=== PATIENT | male | born 1985 | race Two or more races ===

== ENCOUNTER 2019-04-24 06:37 | Inpatient (IN) | payer OTHER ==
[~2019-04-24] VITALS: Ht 185.4 cm; Wt 56.7 kg
[2019-04-24] MEDS ORDERED: LORAZEPAM INJ 2 MG/ML VIAL ONE ×2 (06:56→08:22)
[2019-04-24] MEDS ORDERED: ONDANSETRON HCL/PF 4 MG/2 ML VIAL ONE ×2 (06:56→08:22)
[2019-04-24] MEDS ORDERED: IV NS 0.9% 1,000 ML BAG IV ONE ×2 (07:00→08:30)
[2019-04-24] MEDS ORDERED: LORAZEPAM INJ 2 MG/ML VIAL IVP ONE (07:00)
[2019-04-24] MEDS ORDERED: ONDANSETRON HCL/PF 4 MG/2 ML VIAL IVP ONE (07:00)
--- NOTE | 2019-04-24 07:07 | NUR ---
JESSE FROM HOME. TO ER BED 12. AAOX4, PT CRYING AND SCREAMING. C/O HEROIN WITHDRAWAL. PT REPORT SMOKING HEROIN. LAST USE WAS 3 DAYS AGO. PT COMPLAIN OF GEN BODY PAIN. PT VOMITTED X2 EPISODE OF YELLOW VOMIT. PT HAS BEEN SMOKING HEROIN FOR THE PAST 8 YEAR. MD AT BEDSIDE FOR EVAL. ORDERS RECEIVED, NOTED AND CARRIED OUT. IV LINE OBATINED ON R AC 18G. BLOOD DRAWN BY LIMITED RADIOLOGY TECHNICIAN.
[2019-04-24 07:20] LABS: BASOPHILS # (AUTO) 0.2 /CMM (0.0-0.2); BASOPHILS % (AUTO) 1.7 % (0.0-2.0); EOSINOPHILS % (AUTO) 1.9 % (0.0-6.0); HEMATOCRIT 47 % (39-51); HEMOGLOBIN 15.7 g/dL (13.5-17.5); LYMPHOCYTES # (AUTO) 1.7 /CMM (0.8-4.8); LYMPHOCYTES % (AUTO) 11.6 % (20.0-44.0); MEAN CORPUSCULAR HGB CONC 34 g/dl (31.0-36.0); MEAN CORPUSCULAR VOLUME 86 fL (80-96); MONOCYTES % (AUTO) 6.9 % (2.0-12.0); NEUTROPHILS # (AUTO) 11.1 /CMM (1.8-8.9); NEUTROPHILS % (AUTO) 77.9 % (43.0-81.0); PLATELET COUNT (AUTO) 280 /CMM (150-450); RED BLOOD CELL COUNT(AUTO) 5.43 MIL/uL (4.5-6.0); WHITE BLOOD COUNT (AUTO) 14.3 K/uL (4.3-11.0)
--- NOTE | 2019-04-24 07:23 | NUR ---
PT ENDORSED TO YEIMI MCLAIN FOR KASSY
--- NOTE | 2019-04-24 07:24 | NUR ---
REPORT RECEIVED FROM JOHN JALLOH FOR KASSY.
[2019-04-24 07:25] LABS: CALCIUM, SERUM 10.5 mg/dL (8.5-10.1); CARBON DIOXIDE 23 mmol/L (21-32); CHLORIDE 101 mmol/L (98-107); CREATININE 1.2 mg/dL (0.6-1.3); GLUCOSE 132 mg/dL (74-106); SODIUM SERUM 138 mmol/L (136-145); UREA NITROGEN, BLOOD 14 mg/dL (7-18)
[2019-04-24 07:31] LABS: ACETAMINOPHEN < 2 ug/ml (10-30); ALANINE AMINOTRANSFERASE 21 U/L (12-78); ALBUMIN 4.6 g/dL (3.4-5.0); ALCOHOL, BLOOD < 3 mg/dL (0-0); ALKALINE PHOSPHATASE 139 U/L (46-116); ASPARTATE AMINOTRANSFERASE 37 U/L (15-37); BILIRUBIN,DIRECT 0.1 mg/dL (0.0-0.2); BILIRUBIN,TOTAL 0.7 mg/dL (0.2-1.0); SALICYLATE 1.9 mg/dL (2.8-20.0); TOTAL PROTEIN, SERUM 8.4 g/dL (6.4-8.2)
[2019-04-24] MEDS ORDERED: METOCLOPRAMIDE HCL 10 MG/2 ML VIAL ONE (08:00)
[2019-04-24] MEDS ORDERED: METOCLOPRAMIDE HCL 10 MG/2 ML VIAL IV ONE (08:00)
--- NOTE | 2019-04-24 08:04 | NUR ---
PATIENT IN BED AWAKE, NOTED W VOMITING, MADE MD AWARE.
[2019-04-24] MEDS ORDERED: POTASSIUM CL. PREMIX PERIPHER. 200 ML ONE (08:23)
[2019-04-24] MEDS ORDERED: LORAZEPAM INJ 2 MG/ML VIAL IV ONE (08:30)
[2019-04-24] MEDS ORDERED: ONDANSETRON HCL/PF 4 MG/2 ML VIAL IV ONE (08:30)
[2019-04-24] MEDS: POTASSIUM CL. PREMIX PERIPHER. 50 ML IV SCH ×4 (08:35→12:27)
--- NOTE | 2019-04-24 08:42 | NUR ---
ROOM 110
[2019-04-24 09:00] LABS: EOSINOPHILS % (MANUAL) 1 % (0-4); LYMPHOCYTES % (MANUAL) 12 % (16-48); MONOCYTES % (MANUAL) 7 % (0-11.0); NEUTROPHILS % (MANUAL) 80 (42-76)
[2019-04-24] MEDS ORDERED: NALT50TA PO (09:31)
--- NOTE | 2019-04-24 09:34 | NUR ---
PANEL ON-CALL PAGED
--- NOTE | 2019-04-24 09:38 | NUR ---
REPORT GIVEN TO YEIMI GERMAN FOR KASSY, WITH ONGOING IV POTASSIUM DRIP.
--- NOTE | 2019-04-24 09:39 | NUR ---
MS1/RN REPORT FROM ER REPORT RECEIVED FROM ER NURSE LILLIAM FOR PT TO BE ADMITTED FOR HYPOKALEMIA AND INTRACTABLE VOMITING UNDER THE CARE OF DR. LA. AWAITING FOR PT'S ARRIVAL.
--- NOTE | 2019-04-24 10:55 | NUR ---
MS1/ALUMINUM BOATS ASSEMBLER TO MS1 - 118#2 PT ARRIVED VIA GURNEY ACCOMPANIED BY HIS WITH ER NURSE LILLIAM. PT WITH ON GOING IV INFUSION OF KCL 3RD OF 4TH BAG ORDERED. PT DROWSY AND RESTLESS, MOVES AROUND IN BED A LOT BUT FOLLOWS COMMAND. VOMITED. AWAITING FOR ADMITTING ORDERS. CL WITHIN REACHED AND SAFETY MAINTAINED. ON GOING MONITORING.
[2019-04-24 11:00] VITALS: BP 90/69
[2019-04-24] MEDS ORDERED: Z GUARD REMEDY 2 OZ OINT TP PRN (11:00)
[2019-04-24] MEDS ORDERED: IBUPROFEN 600 MG TABLET PO PRN (11:00)
[2019-04-24] MEDS ORDERED: ACETAMINOPHEN 325 MG TABLET PO PRN (11:00)
[2019-04-24] MEDS ORDERED: MAG HYDROX/AL HYDROX/SIMETH 30 ML UDC PO PRN (11:00)
[2019-04-24] MEDS ORDERED: MAGNESIUM HYDROXIDE 30 ML UDC PO PRN (11:00)
--- NOTE | 2019-04-24 11:13 | NUR ---
POTASSIUM CHLORIDE 10MEQ/50ML LAST DOSE TO BE GIVEN AT [facility]-SURG UNIT TO COMPLETE FOUR DOSES. ENDORSED TO MAXI JALLOH.
--- NOTE | 2019-04-24 12:27 | NUR ---
MS1/RN LAST BAG POTASSIUM ADMINISTER THE LAST BAG (4 OF 4 BAGS) OF POTASSIUM CHLORIDE 10MEQ ORDERED FROM ER.
[2019-04-24] MEDS: METHOCARBAMOL (750MG) 750 MG TABLET PO SCH ×3 (12:51→21:09)
[2019-04-24] MEDS: ONDANSETRON HCL/PF 4 MG/2 ML VIAL IVP PRN ×2 (13:18→18:02)
[2019-04-24] MEDS: IV D5/0.45 NACL 1,000 ML IV PRN ×2 (14:58→23:14)
[2019-04-24 16:00] VITALS: BP 133/71
--- NOTE | 2019-04-24 18:00 | NUR ---
MS1/RN NO URINE OUTPUT NOTED PT HAVEN'T HAD URINATED, CHECKED WITH BLADDER SCAN RESULT, LESS THAN 44 ML. WITH ON GOING IV INFUSION OF D5 1/2NS @ 125CC/HR. SO FAR SINCE PT WAS ADMITTED HAD ABOUT 7 EPISODES OF VOMITING. ON GOING MONITORING, SITTER AT BEDSIDE.
--- NOTE | 2019-04-24 20:00 | NUR ---
MS1/RN AM SHIFT END NOTES PT STILL KEPT VOMITING PERIODICALLY, WITH ON GOING IV FLUIDS. CONDITION REMAINS THE SAME HE WAS ADMITTED THIS MORNING. ALL NEEDS MET, SITTER AT BEDSIDE. PT ENDORSED TO PM NURSE TO CONTINUE CARE. SAFETY MAINTAINED.
--- NOTE | 2019-04-24 23:39 | NUR ---
MS RN NOTES RECEIVED PATIENT ASLEEP IN BED WITH NO DISTRESS NOTED. CALL LIGHT WITHIN REACH. SITTER AT BEDSIDE. PERIPHERAL LINES INTACT AND PATENT. BED IN LOW LOCK SETTING. ALL BELONGINGS KEPT NEAR BEDSIDE. WILL CONTINUE TO MONITOR
[2019-04-25] VITALS: BP 107/56
[2019-04-25] MEDS: METHOCARBAMOL (750MG) 750 MG TABLET PO SCH ×5 (01:34→17:33)
[2019-04-25] MEDS: ONDANSETRON HCL/PF 4 MG/2 ML VIAL IVP PRN (01:47)
--- NOTE | 2019-04-25 06:46 | NUR ---
MS RN NOTES PATIENT ASLEEP IN BED WITH NO DISTRESS NOTED. CALL LIGHT WITHIN REACH. SITTER AT BEDSIDE. SAFETY PRECAUTIONS IN PLACE AT ALL TIMES. ALL DUE MEDS GIVEN ORDERED WITH NO ASE NOTED. NO FURTHER C/O PAIN OR DISCOMFORT. PATIENT NOTED WITH X3 MINIMUM TO MODERATE AMOUNT YELLOW/BROWN EMESIS. PRN ZOFRAN 4MG GIVEN ORDERED AND EFFECTIVE. ASPIRATION PRECAUTIONS MAINTAINED AT ALL TIMES. PERIPHERAL LINES REMAIN INTACT AND PATENT. BED IN LOW LOCK SETTING. ROOM FREE OF CLUTTER AND BELONGINGS KEPT NEAR BEDSIDE. WILL ENDORSE TO ONCOMING SHIFT.
[2019-04-25] MEDS: PANTOPRAZOLE 40 MG TABLET.DR PO SCH (07:30)
[2019-04-25] MEDS: IV D5/0.45 NACL 1,000 ML IV PRN ×2 (07:35→22:31)
[2019-04-25 07:40] LABS: HEMATOCRIT 49 % (39-51); HEMOGLOBIN 16.4 g/dL (13.5-17.5); LYMPHOCYTES % (AUTO) 4.2 % (20.0-44.0); MEAN CORPUSCULAR HGB CONC 34 g/dl (31.0-36.0); MEAN CORPUSCULAR VOLUME 85 fL (80-96); MONOCYTES # (AUTO) 2.3 /CMM (0.1-1.30); MONOCYTES % (AUTO) 9.4 % (2.0-12.0); NEUTROPHILS # (AUTO) 20.9 /CMM (1.8-8.9); NEUTROPHILS % (AUTO) 86.4 % (43.0-81.0); PLATELET COUNT (AUTO) 272 /CMM (150-450); RED BLOOD CELL COUNT(AUTO) 5.74 MIL/uL (4.5-6.0); WHITE BLOOD COUNT (AUTO) 24.2 K/uL (4.3-11.0)
[2019-04-25 08:00] VITALS: BP 146/62
[2019-04-25 08:42] LABS: ALBUMIN 4.4 g/dL (3.4-5.0); BILIRUBIN,TOTAL 0.7 mg/dL (0.2-1.0); CALCIUM, SERUM 9.9 mg/dL (8.5-10.1); CREATININE 1.7 mg/dL (0.6-1.3); MAGNESIUM 1.9 mg/dL (1.8-2.4); POTASSIUM 2.9 mmol/L (3.5-5.1); TOTAL PROTEIN, SERUM 8.7 g/dL (6.4-8.2)
[2019-04-25 08:51] LABS: THYROID STIMULATING HORMONE 0.485 uIU/mL (0.358-3.74)
[2019-04-25] MEDS: FOLIC ACID 1 MG TABLET PO SCH (09:25)
[2019-04-25] MEDS: THIAMINE HCL 100 MG TABLET PO SCH (09:25)
[2019-04-25] MEDS ORDERED: POTASSIUM PHOSPHATE MM 15 MMOL in IV D5W 250 ML IV SCH (11:30)
[2019-04-25] MEDS ORDERED: PIPERACILLIN /TAZOBACTAM 4.5 G in IV D5W 50 ML IV ONE (12:00)
[2019-04-25] MEDS: POTASSIUM CHLORIDE 20 MEQ TAB.PRT.SR PO SCH ×2 (12:19→14:57)
[2019-04-25] MEDS: POTASSIUM PHOSPHATE MM 7.5 MMOL in IV D5W 100 ML IV SCH ×2 (14:58→15:59)
[2019-04-25] MEDS ORDERED: POTASSIUM CHLORIDE 20 MEQ TAB.PRT.SR PO SCH (15:00)
[2019-04-25 16:00] VITALS: BP 123/82
[2019-04-25 17:47] LABS: APPEARANCE,URINE CLOUDY (CLEAR); BILIRUBIN,URINE 1+ (NEGATIVE); BLOOD, URINE 3+ Ery/uL (NEGATIVE); COLOR,URINE YELLOW (YELLOW); KETONES,URINE TRACE (NEGATIVE); LEUKOCYTE ESTERASE ,URINE NEGATIVE (NEGATIVE); NITRITE, URINE NEGATIVE (NEGATIVE); PH,URINE 5.5 (5.0-8.0); PROTEIN,URINE 3+ mg/dl (NEGATIVE); UGLUCOSE NEGATIVE (NEGATIVE); UROBILINOGEN,URINE 0.2 EU/dL (0.2)
[2019-04-25] MEDS: PIPERACILLIN /TAZOBACTAM 3.375 G in IV D5W 100 ML IV SCH (17:54)
[2019-04-25 17:59] LABS: BACTERIA,URINE Few /HPF (None Seen); MUCUS,URINE Moderate /LPF (None Seen); SQUAMOUS EPITHELIAL CELL,UR Few /HPF (None Seen); URINE AMORPHOUS URATE Many /HPF (None Seen)
[2019-04-25 18:03] LABS: CREATININE, URINE 600.8 MG/DL (30.0-125.0); URINE TOTAL PROTEIN 262.8 mg/dL (0-11.9)
--- NOTE | 2019-04-25 18:22 | NUR ---
patient had multiple brown reddish stool,liquid with offensive odor,dr. hansen notified,with new orders left and carried out.will do stat hemogram for possible gi bleed.
[2019-04-25 18:50] LABS: EOSINOPHIL,URINE None Seen
[2019-04-25 18:58] LABS: HEMATOCRIT 48 % (39-51); MEAN CORPUSCULAR HGB CONC 33 g/dl (31.0-36.0); MEAN CORPUSCULAR VOLUME 86 fL (80-96); PLATELET COUNT (AUTO) 259 /CMM (150-450); RED BLOOD CELL COUNT(AUTO) 5.56 MIL/uL (4.5-6.0)
--- NOTE | 2019-04-25 19:00 | NUR ---
patient had a total of 7 soft stool with reddish color and dr hansen saw with naked eye the consistency and repaged again for the total output. awaiting call back.patient also had one episode of vomiting and with red color vomitus with food particle. patients stated that he had taken red jello. dr vasquez is aware and saw the vomitus too. patient not feeling nauseaus anymore. will obsebe patient. rizo catheter inserted aseptically at 1200 pm and with 375 bladder scan prior to placement fo catheter. with 450 out.
[2019-04-25 19:09] LABS: WHITE BLOOD COUNT (AUTO) 30.5 K/uL (4.3-11.0)
[2019-04-25 20:00] VITALS: BP 143/90
--- NOTE | 2019-04-25 20:30 | NUR ---
RN OPENING NOTES RECEIVED REPORT FROM AM RN. PATIENT A/A/O X3 & ABLE TO VERBALIZE SOME NEEDS & STATE PAIN. BREATHING EVEN & UNLABORED, TOLERATING ROOM AIR. DENIES ANY SOB OR DIFFICULTY BREATHING. RADIAL PULSES PRESENT. RIGHT AC & LEFT AC IV #18 INTACT & PATENT W/ DRESSING CDI & IVF D5 1/2 NS INFUSING WELL 125 ML/HR. GONZALES CATH DRAINING UTE COLORED URINE. X1 BM NOTED W/ LIQUID TEXTURE & DARK RED IN COLOR. STOOL COLLECTED FOR OB STOOL. DENIES ANY PAIN OR DISCOMFORT @ THIS TIME. SAFETY MEASURES IN PLACE W/ SIDE RAILS UP & BED ALARM ON. SITTER @ BEDSIDE. WILL CONTINUE TO MONITOR.
[2019-04-25] MEDS: LORAZEPAM 1 MG TABLET PO PRN (20:49)
[2019-04-25] MEDS: TRAZODONE 50 MG TABLET PO PRN (22:26)
[2019-04-26] MEDS: ONDANSETRON HCL/PF 4 MG/2 ML VIAL IVP PRN ×2 (00:27→21:49)
[2019-04-26] MEDS: PIPERACILLIN /TAZOBACTAM 3.375 G in IV D5W 100 ML IV SCH ×3 (01:35→16:47)
[2019-04-26 04:00] VITALS: BP 120/91
[2019-04-26 06:16] LABS: POTASSIUM 3.1 mmol/L (3.5-5.1)
[2019-04-26 06:17] LABS: BILIRUBIN,TOTAL 0.9 mg/dL (0.2-1.0); CALCIUM, SERUM 8.9 mg/dL (8.5-10.1); CREATININE 1.3 mg/dL (0.6-1.3); PHOSPHORUS 3.7 mg/dL (2.5-4.9)
[2019-04-26 06:18] LABS: ALBUMIN 3.7 g/dL (3.4-5.0)
[2019-04-26 06:19] LABS: MAGNESIUM 1.7 mg/dL (1.8-2.4); TOTAL PROTEIN, SERUM 7.7 g/dL (6.4-8.2)
[2019-04-26 07:12] LABS: OCCULT BLOOD STOOL POSITIVE (NEGATIVE)
[2019-04-26 08:00] VITALS: BP 148/88
[2019-04-26 08:11] LABS: BASOPHILS % (AUTO) 0.2 % (0.0-2.0); EOSINOPHILS % (AUTO) 0.1 % (0.0-6.0); HEMATOCRIT 44 % (39-51); HEMOGLOBIN 14.5 g/dL (13.5-17.5); LYMPHOCYTES # (AUTO) 1.6 /CMM (0.8-4.8); LYMPHOCYTES % (AUTO) 6.5 % (20.0-44.0); MEAN CORPUSCULAR HGB CONC 33 g/dl (31.0-36.0); MEAN CORPUSCULAR VOLUME 85 fL (80-96); MONOCYTES # (AUTO) 2.5 /CMM (0.1-1.30); MONOCYTES % (AUTO) 9.9 % (2.0-12.0); NEUTROPHILS # (AUTO) 20.8 /CMM (1.8-8.9); NEUTROPHILS % (AUTO) 83.3 % (43.0-81.0); PLATELET COUNT (AUTO) 266 /CMM (150-450); RED BLOOD CELL COUNT(AUTO) 5.11 MIL/uL (4.5-6.0)
[2019-04-26] MEDS: PANTOPRAZOLE 40 MG TABLET.DR PO SCH (09:15)
[2019-04-26] MEDS: THIAMINE HCL 100 MG TABLET PO SCH (09:15)
[2019-04-26] MEDS: FOLIC ACID 1 MG TABLET PO SCH (09:16)
[2019-04-26] MEDS ORDERED: POTASSIUM CHLORIDE 20 MEQ TAB.PRT.SR PO SCH (09:30)
[2019-04-26] MEDS: LORAZEPAM 1 MG TABLET PO PRN ×2 (09:31→17:39)
[2019-04-26] MEDS: Magnesium 1GM/D5W 100ML PREMIX 100 ML IV SCH ×2 (09:39→10:31)
--- NOTE | 2019-04-26 09:54 | NUR ---
MS RN NOTE RECEIVED PATIENT IN BED ,ALERT ,ORIENTED, ON 2L NC FOR COMFORT , HR AT THIS TIME RANGE ST [id number] , RT AC AND AT AC HL INTACT INTACT AND FLUSHED WELL , ON IVF ORDERED , BED IN LOWEST AND LOCKED POSITION , PLAN OF CARE DISCUSSED WITH PATIENT CALL LIGHT WITHIN REACH , BREAKFAST GIVEN LIGHT DUE TO VOMITING LAST NIGHT WILL CONT TO MONITOR
--- NOTE | 2019-04-26 09:55 | NUR ---
MS RN NOTE SEEN BY DR TOURE AWARE THAT HR ST 135 AND ATIVAN PO WAD GIVEN ORDERED ALSO AWARE THAT K 3.1STATED CONT CARE MAG 1.7 WILL ADMINISTER MAG REPLACEMENT AND OK RO START REGULAR DIET
[2019-04-26] MEDS ORDERED: IV NS 0.9% 1,000 ML IV ONE (13:30)
--- NOTE | 2019-04-26 15:21 | NUR ---
MS RN NOTES TYLENOL 650 M G GIVEN PER DR ORDER FOR BODY ACHES.
[2019-04-26 16:00] VITALS: BP 138/88
--- NOTE | 2019-04-26 17:04 | NUR ---
MS RN NOTE PT IS TRANSFERRING TO [facility] PER ORDER. TRANSMITTER OPERATOR NOTIFIED. SHER IS AWARE.
[2019-04-26 17:19] LABS: APPEARANCE,URINE CLEAR (CLEAR); BILIRUBIN,URINE NEGATIVE (NEGATIVE); BLOOD, URINE 3+ Ery/uL (NEGATIVE); COLOR,URINE YELLOW (YELLOW); KETONES,URINE NEGATIVE (NEGATIVE); LEUKOCYTE ESTERASE ,URINE NEGATIVE (NEGATIVE); NITRITE, URINE NEGATIVE (NEGATIVE); PROTEIN,URINE 2+ mg/dl (NEGATIVE); UGLUCOSE NEGATIVE (NEGATIVE); UROBILINOGEN,URINE 0.2 EU/dL (0.2)
[2019-04-26 17:27] LABS: RBC,URINE 21-50 /HPF (0-2)
[2019-04-26 17:29] LABS: BACTERIA,URINE Few /HPF (None Seen); CREATININE, URINE 191.6 MG/DL (30.0-125.0); SQUAMOUS EPITHELIAL CELL,UR None Seen /HPF (None Seen)
--- NOTE | 2019-04-26 18:37 | NUR ---
MS RN NOTES PT IN BED RESTING COMFORTABLY. NOTED PT HAD DARK LOSE STOOL. DR PRIETO AWARE. NO NEW ORDER GIVEN. WILL TRANSFER TO THE [facility] SOON. IN BEDSIDE. ALL NEEDS ATTENDED. ATIVAN GIVEN AT [id number] FOR ANXIETY.
--- NOTE | 2019-04-26 18:51 | NUR ---
MS RN NOTES CRYPTOGRAPHER CHANDRA CALLED. NO BED AVAILABLE STILL WAITING FOR BED FROM [facility]. WILL ENDORSE IT TO NEXT SHIFT RN TO PROCEED THE TRANSFER TO THE [facility].
[2019-04-26 19:25] LABS: EOSINOPHIL,URINE Rare
[2019-04-26 20:00] VITALS: BP 134/86
--- NOTE | 2019-04-26 20:00 | NUR ---
ms rn notes received pts in bed a/o x4 able to make needs known , pts on nc at 2liters sating 98% ,no sob no distress noted, v/s astable afebrile , pts c/o of upper mid abdomen , maalox prn given as ordered, all due meds given as ordered . call light within reach ,pts remains on NS AT 125CC/HR infusing well , kept pts clean dry and comfortable.
[2019-04-26] MEDS: TRAZODONE 50 MG TABLET PO PRN (21:22)
--- NOTE | 2019-04-26 21:49 | NUR ---
ms rn notes pts with episode of emesis , x 1 large amt of gastric content , zofran 4 mg ivp given as ordered.with effect .will continue to monitor pts.
[2019-04-27] MEDS: LORAZEPAM 1 MG TABLET PO PRN ×2 (01:02→06:13)
[2019-04-27] MEDS: PIPERACILLIN /TAZOBACTAM 3.375 G in IV D5W 100 ML IV SCH ×2 (03:00→11:41)
[2019-04-27 04:00] VITALS: BP 140/82
--- NOTE | 2019-04-27 06:38 | NUR ---
MS RN NOTES PTS IN BED AWAKE AND VERBALLY RESPONSIVE , NO SOB NO DISTRESS NOTED V/S STABLE AFEBRILE , STILL AWAITING FOR INSURANCE TO CALL US TO TRANSFER PTS TO [facility] .CHANDRA JACOBSEN MADE AWARE AND SO WITH THE CHANDRA . PTS WITH EPISODE OF ANXIETY , ATIVAN IMG VIA PO GIVEN ORDER.WILL ENDORSE TO RN DAY SHIFT FOR CONTINUITY OF CARE.
[2019-04-27 06:49] LABS: CALCIUM, SERUM 8.5 mg/dL (8.5-10.1); CREATININE 0.9 mg/dL (0.6-1.3); MAGNESIUM 1.9 mg/dL (1.8-2.4); PHOSPHORUS 2.6 mg/dL (2.5-4.9); POTASSIUM 3.5 mmol/L (3.5-5.1)
--- NOTE | 2019-04-27 07:34 | NUR ---
DIRECTOR INTERNAL COMMUNICATIONS OPENING NOTES RECEIVED PATIENT IN BED A/A X3 SHOWS NO SIGNS OF DISTRESS. PATIENT IS VERBAL. AND ON 2L NC AND SHOWS NO SIGNS OF SOB. RIGHT AC & LEFT AC IV #18 INTACT & PATENT DENIES ANY PAIN OR DISCOMFORT AT THIS TIME. SKIN IS INTACT. SAFETY MEASURES IN PLACE W/ SIDE RAILS UP & BED ALARM ON. WILL CONTINUE TO MONITOR. Addendum: 04/27/19 at 0745 by OLESYA DONALDSON RN MS RN OPENING NOTES
[2019-04-27 07:58] LABS: BASOPHILS % (AUTO) 0.2 % (0.0-2.0); EOSINOPHILS % (AUTO) 1.4 % (0.0-6.0); HEMATOCRIT 34 % (39-51); HEMOGLOBIN 11.7 g/dL (13.5-17.5); LYMPHOCYTES % (AUTO) 8.6 % (20.0-44.0); MEAN CORPUSCULAR HGB CONC 34 g/dl (31.0-36.0); MEAN CORPUSCULAR VOLUME 84 fL (80-96); MONOCYTES # (AUTO) 1.6 /CMM (0.1-1.30); MONOCYTES % (AUTO) 14.4 % (2.0-12.0); NEUTROPHILS # (AUTO) 8.6 /CMM (1.8-8.9); NEUTROPHILS % (AUTO) 75.4 % (43.0-81.0); PLATELET COUNT (AUTO) 236 /CMM (150-450); RED BLOOD CELL COUNT(AUTO) 4.07 MIL/uL (4.5-6.0); WHITE BLOOD COUNT (AUTO) 11.4 K/uL (4.3-11.0)
[2019-04-27] MEDS: FOLIC ACID 1 MG TABLET PO SCH (08:48)
[2019-04-27] MEDS: THIAMINE HCL 100 MG TABLET PO SCH (08:49)
[2019-04-27] MEDS: PANTOPRAZOLE 40 MG TABLET.DR PO SCH (08:49)
[2019-04-27 09:07] LABS: *SPE A/G RATIO 1.1 (0.7-1.7); *SPE ALBUMIN 3.7 g/dL (2.9-4.4); *SPE ALPHA-1-GLOBULIN 0.5 g/dL (0.0-0.4); *SPE ALPHA-2-GLOBULIN 1.1 g/dL (0.4-1.0); *SPE BETA GLOBULIN 1.1 g/dL (0.7-1.3); *SPE GLOBULIN, TOTAL 3.5 g/dL (2.2-3.9); *SPE M-SPIKE Not Observed g/dL (Not Observed); *SPEGAMMA GLOBULIN 0.9 g/dL (0.4-1.8)
[2019-04-27] MEDS ORDERED: IV NS 0.9% 1,000 ML BAG IV PRN (10:00)
[2019-04-27] MEDS ORDERED: IV NS 0.9% 1,000 ML IV PRN (10:30)
--- NOTE | 2019-04-27 12:41 | NUR ---
RN NOTES REPORT GIVEN TO YEIMI ALLAN AT [facility] FOR CONTINUITY OF CARE.
[2019-04-27 13:09] LABS: PTH, INTACT 21 pg/mL (15-65)
--- NOTE | 2019-04-27 13:40 | NUR ---
RN NOTES PATIENT TRANSFERRED TO [facility] VIA [facility] ACCOMPANIED BY 2 EMT. AWARE OF THE TRANSPORT DETAIL FOR SHE WAS AT BEDSIDE EARLIER. PACKET HANDED AT THE EMT
== END 2019-04-27 13:40 | disposition short-term general hospital (02) | DRG 896 ==
LOC: ER 06:40 → MEDSG1 09:38
PROVIDERS: ADMIT Internal Medicine; ATTEND Internal Medicine
DX: F11.23 Opioid dependence with withdrawal (principal); G92 Toxic encephalopathy; N17.0 Acute kidney failure with tubular necrosis; M62.82 Rhabdomyolysis; E87.1 Hypo-osmolality and hyponatremia; F17.210 Nicotine dependence, cigarettes, uncomplicated; R00.1 Bradycardia, unspecified; E86.0 Dehydration; D72.829 Elevated white blood cell count, unspecified; R13.10 Dysphagia, unspecified
CPT/HCPCS: 36415; 71045-TC; 80048-TC; 80053-TC; 80061-TC; 80076-TC; 80305; 81000-TC; 82272-TC; 82550-TC; 82570-TC; 83735-TC; 83970; 84100-TC; 84155; 84155-TC; 84165; 84300-TC; 84443-TC; 84484-TC; 85025-TC; 85027-TC; 87040-TC; 93307-TC; A4216; A4349; G0378; G0480; J2060; J2405; J2543; J2765; J3475; J3480; J3490; J7030; J7060